=== PATIENT | male | born 1990 | race Caucasian/White ===

== ENCOUNTER 2020-05-24 20:38 | Emergency (ER) | payer OTHER ==
[~2020-05-24] VITALS: Ht 177.8 cm; Wt 65.8 kg
[2020-05-24] MEDS ORDERED: HALDOL 0.5 MG0.5 M1 PO (20:48)
[2020-05-24] MEDS ORDERED: RISPERDAL 1 MG T1 MG PO (20:48)
[2020-05-24 21:55] LABS: ABSOLUTE NEUTROPHILS 4.4 thou/uL (1.4-8.2); EOSINOPHILS 5.4 % (0.0-3.0); HEMATOCRIT 37.8 % (42.0-52.0); HEMOGLOBIN 12.7 gm/dL (14.0-18.0); LYMPHOCYTES 26.2 % (24.0-44.0); MCH 29.5 pg (26.0-34.0); MCHC 33.7 g/dL (28.0-37.0); MCV 87.5 fL (80.0-100.0); PLATELET COUNT 284 thou/uL (150-400); POLYS 55.4 % (36.0-66.0); RBC 4.33 mil/uL (4.50-6.00); RDW 12.9 % (10.5-14.5)
[2020-05-24 22:00] LABS: CALCIUM 8.6 mg/dL (8.5-10.1); CREATININE 0.9 mg/dL (0.7-1.3)
[2020-05-24 22:06] LABS: ALBUMIN 3.5 g/dL (3.4-5.0); TOTAL BILIRUBIN 0.4 mg/dL (0.2-1.0); TOTAL PROTEIN 5.9 g/dL (6.4-8.2)
[2020-05-25 01:44] LABS: URINE BILIRUBIN NEGATIVE (Negative); URINE BLOOD NEGATIVE (Negative); URINE CLARITY CLEAR; URINE COLOR YELLOW; URINE GLUCOSE-RANDOM* NEGATIVE (Negative); URINE KETONES NEGATIVE (Negative); URINE LEUKOCYTES-REFLEX NEGATIVE (Negative); URINE NITRITE-REFLEX NEGATIVE (Negative); URINE PROTEIN (DIPSTICK) NEGATIVE (Negative); URINE UROBILINOGEN 0.2 E.U./dl (0.2-1.0)
[2020-05-25] MEDS ORDERED: HALDOL 0.5 MG0.5 MG PO ×2 (01:44→01:47)
[2020-05-25] MEDS ORDERED: TRAZODONE HCL50 MG PO ×2 (01:44→01:47)
[2020-05-25] MEDS ORDERED: RISPERDAL 1 MG T1 MG PO ×2 (01:44→01:47)
[2020-05-25 01:49] VITALS: BP 92/40
[2020-05-25 01:54] LABS: AMP/METHAMP Negative (Negative); BARBITURATES Negative (Negative); BENZODIAZEPINES Negative (Negative); COCAINE Negative (Negative); METHADONE Negative (Negative); OPIATES Negative (Negative); PCP Negative (Negative)
--- NOTE | 2020-05-25 07:10 | EKG ---
[facility] [place] [address] ELECTROCARDIOGRAM REPORT Name: MANUEL GARCIA III Room #: DEP [facility]#: [id number] Admission: 05/24/20 Attend Phys: Discharge: 05/25/20 Date of : 89 Report #: [id number] THIS REPORT FOR: cc: NO FAMILY PHYSICIAN or PCP NO FAMILY PHYSICIAN or PCP Gregorio Carter MD [facility] ~ THIS REPORT FOR: //name// [facility] ED Test Date: 2020-05-24 Test Time: 22:38:06 Pat Name: MANUEL GARCIA Department: Room: Gender: Instructional Design Specialist: josecarmen : 1990 Requested By: Ba Evans Order Number: [id number] MD: Gregorio Carter Measurements Intervals [place] Rate: 74 P: 71 FL: 132 QRS: 61 QRSD: 104 T: 53 QT: 389 QTc: 432 Interpretive Statements Sinus rhythm Probable left atrial enlargement RSR' in V1 or V2, right VCD or RVH ST elev, probable normal early repol pattern No previous ECG available for comparison Electronically Signed On 05-25-2020 7:09:57 [employer]AVE INSPECTOR by Gregorio Carter [email or web address] <ELECTRONICALLY SIGNED> By: Gregorio Carter MD, FACC 05/25/20 [id number] Gregorio Carter MD, [facility] /EPI
== END 2020-05-25 01:52 | disposition home or self-care (01) ==
LOC: ER 20:38
PROVIDERS: Emergency Medicine
DX: F20.9 Schizophrenia, unspecified (principal); R45.851 Suicidal ideations; Z91.14 Patient's other noncompliance with medication regimen; Z79.899 Other long term (current) drug therapy; Z88.8 Allergy status to other drugs, medicaments and biological substances; Z59.0 Homelessness

== ENCOUNTER 2020-06-25 20:46 | Emergency (ER) | payer OTHER ==
[~2020-06-25] VITALS: Ht 160 cm; Wt 68.0 kg
[~2020-06-25 20:46] MED LIST: HALDOL 0.5 MG0.5 M1 PO; HALDOL 0.5 MG0.5 MG PO; RISPERDAL 1 MG T1 MG PO; TRAZODONE HCL50 MG PO
[2020-06-25 20:50] VITALS: BP 128/86
[2020-06-25] MEDS ORDERED: CLEOCIN HCL150 MG PO (21:36)
== END 2020-06-25 22:15 | disposition home or self-care (01) ==
LOC: ER 20:46
DX: K02.9 Dental caries, unspecified (principal); R41.82 Altered mental status, unspecified